=== PATIENT | male | born 1950 | race Caucasian/White ===

== ENCOUNTER 2019-03-19 15:23 | Inpatient (IN) | payer OTHER ==
[~2019-03-19] VITALS: Ht 190.5 cm; Wt 73.1 kg
[2019-03-19 15:26] VITALS: BP 198/102
[2019-03-19] MEDS ORDERED: NACL 0.9% 500 ML IV SCH (15:33)
[2019-03-19] MEDS ORDERED: DILTIAZEM 25 MG/5 ML VIAL IVP ONE (16:15)
[2019-03-19] MEDS ORDERED: ASPIRIN 325 MG TAB PO ONE (16:25)
[2019-03-19] MEDS ORDERED: CLINDAMYCIN 900 MG in DEXTROSE 5% 100 ML IV ONE (16:25)
[2019-03-19] MEDS ORDERED: CLINDAMYCIN 900 MG/6 ML VIAL IV ONE (16:30)
[2019-03-19 16:44] LABS: HEMOGLOBIN 15.8 g/dL (12.0-18.0); MEAN CORPUSCULAR HEMOGLOBIN 29 pg (27-31); MEAN CORPUSCULAR HGB CONC 32 g/dL (33-37); MEAN CORPUSCULAR VOLUME 90.3 fL (80-94); PLATELET COUNT (AUTO) 254 K/uL (140-450); RED BLOOD CELL COUNT(AUTO) 5.43 MIL/uL (4.20-6.10); RED CELL DISTRIBUTION WIDTH 17.7 % (11.6-13.7); WHITE BLOOD COUNT (AUTO) 18.8 K/uL (4.8-10.8)
[2019-03-19 16:55] LABS: ANION GAP 12.7 (8-16); CARBON DIOXIDE 30.2 mmol/L (21-32); CREATININE 0.9 mg/dL (0.7-1.3); POTASSIUM 3.9 mmol/L (3.5-5.1)
[2019-03-19 17:00] LABS: ALBUMIN 2.5 g/dL (3.4-5.0); TOTAL BILIRUBIN 0.5 mg/dL (0.0-1.0)
[2019-03-19 17:08] LABS: LYMPHOCYTES % (MANUAL) 5 % (20-46); MONOCYTES % (MANUAL) 5 % (5-12)
[2019-03-19] MEDS: NACL 0.9% 1,000 ML IV SCH (17:38)
[2019-03-19] MEDS ORDERED: HYDROcodone/APAP 7.5/325 MG 1 TAB PO PRN (17:40)
[2019-03-19] MEDS ORDERED: ONDANSETRON 4 MG/2 ML VIAL IM/IVP PRN (17:40)
[2019-03-19] MEDS ORDERED: ACETAMINOPHEN 325 MG TAB PO PRN (17:40)
[2019-03-19] MEDS ORDERED: DOCUSATE SODIUM 100 MG GELCAP PO PRN (17:40)
[2019-03-19] MEDS ORDERED: MORPHINE SULFATE 2 MG/ML SYR IVP PRN (17:40)
[2019-03-19] MEDS ORDERED: ALBUTEROL SULFATE/IPRATROPIU 3 ML SOL IH PRN (17:40)
[2019-03-19] MEDS ORDERED: METO25TA PO (18:02)
[2019-03-19] MEDS ORDERED: APIX5TAB PO (18:02)
[2019-03-19] MEDS ORDERED: HYDR2TAB6 PO (18:02)
[2019-03-19 18:10] LABS: PROTHROMBIN TIME 11.2 secs (10.8-13.4)
[2019-03-19 18:16] LABS: MAGNESIUM 1.5 mg/dL (1.8-2.4); THYROID STIMULATING HORMONE 0.42 uIU/mL (0.34-3.74)
[2019-03-19] MEDS: ALBUTEROL SULFATE/IPRATROPIU 3 ML SOL IH SCH (18:59)
[2019-03-19 20:00] VITALS: BP 117/65
[2019-03-20] VITALS (73 sets, daily range): BP systolic 85–156; BP diastolic 35–107
[2019-03-20] MEDS ORDERED: AZITHROMYCIN 250 MG TAB PO ONE (00:50)
[2019-03-20] MEDS: NACL 0.9% 1,000 ML IV SCH ×3 (01:03→23:38)
[2019-03-20] MEDS ORDERED: VANCOMYCIN PER PHARMACY MC PRN (01:35)
[2019-03-20] MEDS ORDERED: VANCOMYCIN 1GM/DEXT 5% PREMIX 200 ML IV SCH (02:00)
[2019-03-20] MEDS ORDERED: HYDROmorphone 2 MG TAB PO SCH (02:20)
[2019-03-20] MEDS ORDERED: VANCOMYCIN 1,000 MG VIAL ONE (02:41)
[2019-03-20] MEDS ORDERED: MAGNESIUM OXIDE 400 MG TAB PO SCH (03:00)
[2019-03-20] MEDS ORDERED: PIPERACILLIN/TAZOBACTAM 3.375 GM VIAL IV ONE (04:34)
[2019-03-20] MEDS: PIPERACILLIN/TAZOBACTAM 3.375 GM in DEXTROSE 5% 50 ML IV SCH ×3 (04:43→20:13)
[2019-03-20] MEDS ORDERED: CLINDAMYCIN 900 MG in DEXTROSE 5% 100 ML IV SCH (05:00)
[2019-03-20] MEDS ORDERED: PROPOFOL 1000 MG/100 ML PREMIX 100 ML IV SCH (06:05)
[2019-03-20] MEDS: ALBUTEROL SULFATE/IPRATROPIU 3 ML SOL IH SCH ×3 (06:46→19:32)
[2019-03-20] MEDS: BUDESONIDE 0.5 MG/2 ML NEBU INH SCH ×2 (06:47→19:32)
[2019-03-20] MEDS ORDERED: PROPOFOL 1000 MG/100 ML PREMIX 100 ML IV ONE (07:29)
[2019-03-20 08:30] LABS: CHOL/HDL RATIO 3.4 (1-4.5)
[2019-03-20] MEDS ORDERED: APIXABAN 2.5 MG TAB PO SCH (09:00)
[2019-03-20] MEDS ORDERED: METOPROLOL 25 MG TAB PO SCH (09:00)
[2019-03-20] MEDS ORDERED: NITROGLYCERIN 0.4 MG TAB SL PRN (09:40)
[2019-03-20] MEDS: LACTOBACILLUS RHAMNOSUS GG 1 EACH CAP PO SCH (09:52)
[2019-03-20] MEDS: APIXABAN 2.5 MG TAB PO SCH ×2 (09:53→20:14)
[2019-03-20] MEDS: MIDAZOLAM MDV 50 MG in NACL 0.9% 40 ML IV PRN (11:01)
[2019-03-20] MEDS ORDERED: MORPHINE SULFATE 50 MG in NACL 0.9% 45 ML IV PRN (13:00)
[2019-03-20] MEDS: VANCOMYCIN 1,000 MG in DEXTROSE 5% 250 ML IV SCH (14:46)
[2019-03-20] MEDS: ATORVASTATIN 20 MG TAB PO SCH (16:31)
[2019-03-20] MEDS: methylPREDNISolone SS 40 MG/ML VIAL IVP SCH (20:13)
[2019-03-20] MEDS: METOPROLOL 25 MG TAB PO SCH (20:14)
[2019-03-21] VITALS (103 sets, daily range): BP systolic 84–178; BP diastolic 36–101
[2019-03-21] MEDS: VANCOMYCIN 1,000 MG in DEXTROSE 5% 250 ML IV SCH (01:00)
[2019-03-21] MEDS: PIPERACILLIN/TAZOBACTAM 3.375 GM in DEXTROSE 5% 50 ML IV SCH ×3 (05:30→20:22)
[2019-03-21] MEDS: HYDROmorphone 1 MG/ML AMP IVP PRN (06:21)
[2019-03-21] MEDS: ALBUTEROL SULFATE/IPRATROPIU 3 ML SOL IH SCH ×3 (06:32→19:48)
[2019-03-21] MEDS: BUDESONIDE 0.5 MG/2 ML NEBU INH SCH ×2 (06:45→19:48)
[2019-03-21] MEDS: NACL 0.9% 1,000 ML IV SCH ×2 (07:30→18:14)
[2019-03-21] MEDS: METOPROLOL 25 MG TAB PO SCH ×2 (08:56→20:23)
[2019-03-21] MEDS: methylPREDNISolone SS 40 MG/ML VIAL IVP SCH ×2 (08:56→20:23)
[2019-03-21] MEDS: LACTOBACILLUS RHAMNOSUS GG 1 EACH CAP PO SCH (08:57)
[2019-03-21] MEDS ORDERED: ECOTRIN 81 MG TABEC PO SCH (09:00)
[2019-03-21] MEDS ORDERED: AZITHROMYCIN 250 MG TAB PO SCH (09:00)
[2019-03-21] MEDS: APIXABAN 2.5 MG TAB PO SCH ×2 (09:05→20:26)
[2019-03-21] MEDS: MIDAZOLAM MDV 50 MG in NACL 0.9% 40 ML IV PRN (09:39)
[2019-03-21 09:59] LABS: HEMATOCRIT 42.6 % (36-52); HEMOGLOBIN 13.6 g/dL (12.0-18.0); MEAN CORPUSCULAR HEMOGLOBIN 29 pg (27-31); MEAN CORPUSCULAR HGB CONC 32 g/dL (33-37); MEAN CORPUSCULAR VOLUME 90.6 fL (80-94); PLATELET COUNT (AUTO) 201 K/uL (140-450); RED CELL DISTRIBUTION WIDTH 17.5 % (11.6-13.7); WHITE BLOOD COUNT (AUTO) 9.8 K/uL (4.8-10.8)
[2019-03-21] MEDS: PANTOPRAZOLE 40 MG INJ VIAL IVP SCH (10:00)
[2019-03-21 10:39] LABS: ANION GAP 12.2 (8-16); CARBON DIOXIDE 26.2 mmol/L (21-32); CREATININE 1.5 mg/dL (0.7-1.3); POTASSIUM 4.4 mmol/L (3.5-5.1)
[2019-03-21 10:59] LABS: LYMPHOCYTES % (MANUAL) 6 % (20-46); MONOCYTES % (MANUAL) 3 % (5-12)
[2019-03-21 11:17] LABS: MAGNESIUM 1.8 mg/dL (1.8-2.4); PHOSPHORUS 4.3 mg/dL (2.5-4.9)
[2019-03-21] MEDS ORDERED: MIDAZOLAM IV PRN (15:54)
[2019-03-21] MEDS ORDERED: NACL 0.9% IV PRN (15:54)
[2019-03-21] MEDS ORDERED: MIDAZOLAM MDV 50 MG in NACL 0.9% 40 ML IV PRN (15:56)
[2019-03-21] MEDS: ATORVASTATIN 20 MG TAB PO SCH (18:13)
[2019-03-21] MEDS: CHLORHEXADINE GLUC 2% CLOTH TP SCH (21:15)
[2019-03-21] MEDS ORDERED: CHLORHEXADINE GLUC 2% CLOTH TP SCH (21:55)
[2019-03-22] VITALS (78 sets, daily range): BP systolic 79–181; BP diastolic 43–118
[2019-03-22] MEDS: NACL 0.9% 1,000 ML IV SCH ×2 (04:52→16:37)
[2019-03-22 04:53] LABS: BASOPHILS % (AUTO) 0.2 % (0.0-2.0); EOSINOPHILS % (AUTO) 0.1 % (0.0-4.0); HEMATOCRIT 45.4 % (36-52); HEMOGLOBIN 14.5 g/dL (12.0-18.0); LYMPHOCYTES # (AUTO) 0.5 K/uL (2.0-11.5); LYMPHOCYTES % (AUTO) 6.2 % (20.5-51.1); MEAN CORPUSCULAR HEMOGLOBIN 29 pg (27-31); MEAN CORPUSCULAR HGB CONC 32 g/dL (33-37); MEAN CORPUSCULAR VOLUME 90.2 fL (80-94); MONOCYTES # (AUTO) 0.3 K/uL (0.8-1.0); NEUTROPHILS # (AUTO) 7.2 K/uL (1.8-7.7); PLATELET COUNT (AUTO) 205 K/uL (140-450); RED BLOOD CELL COUNT(AUTO) 5.04 MIL/uL (4.20-6.10); RED CELL DISTRIBUTION WIDTH 17.6 % (11.6-13.7); WHITE BLOOD COUNT (AUTO) 8.1 K/uL (4.8-10.8)
[2019-03-22] MEDS: PIPERACILLIN/TAZOBACTAM 3.375 GM in DEXTROSE 5% 50 ML IV SCH ×3 (04:53→20:32)
[2019-03-22 05:24] LABS: NEUTROPHILS % (AUTO) 89.5 % (42.2-75.2)
[2019-03-22 05:41] LABS: ANION GAP 11.8 (8-16); CARBON DIOXIDE 26.6 mmol/L (21-32); CREATININE 1.4 mg/dL (0.7-1.3); POTASSIUM 4.4 mmol/L (3.5-5.1)
[2019-03-22 05:44] LABS: MAGNESIUM 1.8 mg/dL (1.8-2.4); PHOSPHORUS 4.2 mg/dL (2.5-4.9)
[2019-03-22] MEDS: ALBUTEROL SULFATE/IPRATROPIU 3 ML SOL IH SCH ×3 (06:16→19:21)
[2019-03-22] MEDS: BUDESONIDE 0.5 MG/2 ML NEBU INH SCH ×2 (06:25→19:29)
[2019-03-22] MEDS: methylPREDNISolone SS 40 MG/ML VIAL IVP SCH ×2 (08:41→20:32)
[2019-03-22] MEDS: PANTOPRAZOLE 40 MG INJ VIAL IVP SCH (08:41)
[2019-03-22] MEDS: MUPIROCIN 2% OINT 22 GM TUBE TP SCH (08:41)
[2019-03-22] MEDS: METOPROLOL 25 MG TAB PO SCH ×2 (08:42→20:35)
[2019-03-22] MEDS: LACTOBACILLUS RHAMNOSUS GG 1 EACH CAP PO SCH (08:43)
[2019-03-22] MEDS: APIXABAN 2.5 MG TAB PO SCH ×2 (08:43→20:35)
[2019-03-22] MEDS: ASPIRIN 81 MG TAB.CHEW PO SCH (08:46)
[2019-03-22] MEDS ORDERED: MUPIROCIN CA NASAL 2% 1GM TUBE NS SCH (09:00)
[2019-03-22] MEDS: VANCOMYCIN 1,000 MG in DEXTROSE 5% 250 ML IV SCH (09:26)
[2019-03-22] MEDS ORDERED: hydrALAZINE 20 MG/ML VIAL IVP PRN (13:55)
[2019-03-22] MEDS ORDERED: PROBIOTIC SCREEN 1 EA MISC MC PRN (14:20)
[2019-03-22] MEDS: ATORVASTATIN 20 MG TAB PO SCH (16:42)
[2019-03-22] MEDS: HYDROmorphone 1 MG/ML AMP IVP PRN (20:36)
[2019-03-22] MEDS: CHLORHEXADINE GLUC 2% CLOTH TP SCH (20:37)
[2019-03-23] VITALS (16 sets, daily range): BP systolic 118–175; BP diastolic 55–107
[2019-03-23] MEDS: NACL 0.9% 1,000 ML IV SCH ×2 (00:49→11:39)
[2019-03-23] MEDS: HYDROmorphone 1 MG/ML AMP IVP PRN ×3 (02:04→20:12)
[2019-03-23] MEDS: PIPERACILLIN/TAZOBACTAM 3.375 GM in DEXTROSE 5% 50 ML IV SCH ×3 (05:06→20:12)
[2019-03-23 05:48] LABS: ANION GAP 12.3 (8-16); CARBON DIOXIDE 25.9 mmol/L (21-32); CREATININE 1.3 mg/dL (0.7-1.3); POTASSIUM 4.2 mmol/L (3.5-5.1)
[2019-03-23 05:50] LABS: MAGNESIUM 1.9 mg/dL (1.8-2.4)
[2019-03-23 06:38] LABS: BASOPHILS % (AUTO) 0.1 % (0.0-2.0); HEMATOCRIT 44.8 % (36-52); HEMOGLOBIN 14.2 g/dL (12.0-18.0); LYMPHOCYTES # (AUTO) 0.3 K/uL (2.0-11.5); LYMPHOCYTES % (AUTO) 5.2 % (20.5-51.1); MEAN CORPUSCULAR HEMOGLOBIN 29 pg (27-31); MEAN CORPUSCULAR HGB CONC 32 g/dL (33-37); MEAN CORPUSCULAR VOLUME 90.6 fL (80-94); MONOCYTES # (AUTO) 0.3 K/uL (0.8-1.0); MONOCYTES % (AUTO) 4.3 % (1.7-9.3); NEUTROPHILS # (AUTO) 5.8 K/uL (1.8-7.7); NEUTROPHILS % (AUTO) 90.4 % (42.2-75.2); PLATELET COUNT (AUTO) 193 K/uL (140-450); RED BLOOD CELL COUNT(AUTO) 4.95 MIL/uL (4.20-6.10); RED CELL DISTRIBUTION WIDTH 17.9 % (11.6-13.7); WHITE BLOOD COUNT (AUTO) 6.4 K/uL (4.8-10.8)
[2019-03-23] MEDS: ALBUTEROL SULFATE/IPRATROPIU 3 ML SOL IH SCH ×3 (06:56→19:28)
[2019-03-23] MEDS: ACETYLCYSTEINE 10% (100 MG/ML) 100 MG/ML VIAL INH SCH ×3 (06:57→19:29)
[2019-03-23] MEDS: BUDESONIDE 0.5 MG/2 ML NEBU INH SCH ×2 (07:10→19:28)
[2019-03-23] MEDS: ASPIRIN 81 MG TAB.CHEW PO SCH (09:00)
[2019-03-23] MEDS: METOPROLOL 25 MG TAB PO SCH ×2 (09:06→20:11)
[2019-03-23] MEDS: VANCOMYCIN 1,000 MG in DEXTROSE 5% 250 ML IV SCH (09:06)
[2019-03-23] MEDS: PANTOPRAZOLE 40 MG INJ VIAL IVP SCH (09:06)
[2019-03-23] MEDS: methylPREDNISolone SS 40 MG/ML VIAL IVP SCH ×2 (09:06→20:12)
[2019-03-23] MEDS: LACTOBACILLUS RHAMNOSUS GG 1 EACH CAP PO SCH (09:07)
[2019-03-23] MEDS: APIXABAN 2.5 MG TAB PO SCH ×2 (09:12→21:42)
[2019-03-23] MEDS: MUPIROCIN 2% OINT 22 GM TUBE TP SCH (09:24)
[2019-03-23] MEDS ORDERED: FUROSEMIDE 40 MG/4 ML VIAL IVP SCH ×2 (11:24→11:35)
[2019-03-23] MEDS: ATORVASTATIN 20 MG TAB PO SCH (16:40)
[2019-03-23] MEDS: FUROSEMIDE 40 MG/4 ML VIAL IVP SCH (16:40)
[2019-03-23 17:24] LABS: APPEARANCE,URINE CLEAR (CLEAR); BILIRUBIN,URINE NEGATIVE (NEGATIVE); BLOOD, URINE 1+ (NEGATIVE); COLOR,URINE YELLOW (YELLOW); LEUKOCYTE ESTERASE ,URINE NEGATIVE (NEGATIVE); NITRITE, URINE NEGATIVE (NEGATIVE); UGLUCOSE NEGATIVE (NEGATIVE)
[2019-03-23 17:35] LABS: RBC,URINE 0-5 /HPF (0-5); WBC,URINE NONE SEEN /HPF (0-5)
[2019-03-23] MEDS: CHLORHEXADINE GLUC 2% CLOTH TP SCH (20:13)
[2019-03-24 02:00] VITALS: BP 103/50
[2019-03-24] MEDS: HYDROmorphone 1 MG/ML AMP IVP PRN (02:19)
[2019-03-24] MEDS: PIPERACILLIN/TAZOBACTAM 3.375 GM in DEXTROSE 5% 50 ML IV SCH (05:00)
[2019-03-24] MEDS: ACETYLCYSTEINE 10% (100 MG/ML) 100 MG/ML VIAL INH SCH ×2 (07:20→14:01)
[2019-03-24] MEDS: BUDESONIDE 0.5 MG/2 ML NEBU INH SCH (07:20)
[2019-03-24] MEDS: ALBUTEROL SULFATE/IPRATROPIU 3 ML SOL IH SCH ×2 (07:20→14:00)
[2019-03-24 08:00] VITALS: BP 155/82
[2019-03-24] MEDS: PANTOPRAZOLE 40 MG INJ VIAL IVP SCH (08:45)
[2019-03-24] MEDS: methylPREDNISolone SS 40 MG/ML VIAL IVP SCH (08:45)
[2019-03-24] MEDS: FUROSEMIDE 40 MG/4 ML VIAL IVP SCH (08:45)
[2019-03-24] MEDS: LACTOBACILLUS RHAMNOSUS GG 1 EACH CAP PO SCH (08:45)
[2019-03-24] MEDS: METOPROLOL 25 MG TAB PO SCH (08:46)
[2019-03-24] MEDS: ASPIRIN 81 MG TAB.CHEW PO SCH (08:47)
[2019-03-24] MEDS: APIXABAN 2.5 MG TAB PO SCH (08:51)
[2019-03-24] MEDS: MUPIROCIN 2% OINT 22 GM TUBE TP SCH (09:00)
[2019-03-24 09:43] LABS: HEMATOCRIT 42.6 % (36-52); HEMOGLOBIN 13.6 g/dL (12.0-18.0); LYMPHOCYTES # (AUTO) 0.2 K/uL (2.0-11.5); MEAN CORPUSCULAR HEMOGLOBIN 29 pg (27-31); MEAN CORPUSCULAR HGB CONC 32 g/dL (33-37); MEAN CORPUSCULAR VOLUME 89.8 fL (80-94); MONOCYTES # (AUTO) 0.5 K/uL (0.8-1.0); MONOCYTES % (AUTO) 7.4 % (1.7-9.3); NEUTROPHILS # (AUTO) 5.7 K/uL (1.8-7.7); NEUTROPHILS % (AUTO) 89.6 % (42.2-75.2); PLATELET COUNT (AUTO) 182 K/uL (140-450); RED BLOOD CELL COUNT(AUTO) 4.74 MIL/uL (4.20-6.10); RED CELL DISTRIBUTION WIDTH 17.3 % (11.6-13.7); WHITE BLOOD COUNT (AUTO) 6.3 K/uL (4.8-10.8)
[2019-03-24 09:49] LABS: ANION GAP 12.8 (8-16); CARBON DIOXIDE 31.5 mmol/L (21-32); CREATININE 1.5 mg/dL (0.7-1.3); POTASSIUM 3.3 mmol/L (3.5-5.1)
[2019-03-24 09:58] LABS: MAGNESIUM 1.7 mg/dL (1.8-2.4); PHOSPHORUS 4.2 mg/dL (2.5-4.9)
[2019-03-24] MEDS ORDERED: MUC104 INH (11:28)
[2019-03-24] MEDS ORDERED: PIPE1SOL IV (11:28)
[2019-03-24] MEDS ORDERED: ATOR20TA40 PO (11:28)
[2019-03-24] MEDS ORDERED: Vancomycin Per Pharmacy MC (11:28)
[2019-03-24] MEDS ORDERED: LACT10CA PO (11:28)
[2019-03-24] MEDS ORDERED: ASPI81CT95 PO (11:28)
[2019-03-24] MEDS ORDERED: METO25TA PO (11:28)
== END 2019-03-24 15:05 | DRG 871 ==
LOC: MED 15:23 → MMU 17:42 → MIC 03-20 05:50 → MTU 03-24 06:50
PROVIDERS: ADMIT General Practice; ATTEND General Practice
PROC: 0BH17EZ Insertion of Endotracheal Airway into Trachea, Via Natural or Artificial Opening (ICD-10-PCS; principal; 2019-03-20)
PROC: 5A1945Z Respiratory Ventilation, 24-96 Consecutive Hours (ICD-10-PCS; 2019-03-20)
DX: A41.9 Sepsis, unspecified organism (principal); J69.0 Pneumonitis due to inhalation of food and vomit; J96.01 Acute respiratory failure with hypoxia; I21.A1 Myocardial infarction type 2; N17.0 Acute kidney failure with tubular necrosis; E44.0 Moderate protein-calorie malnutrition; J44.1 Chronic obstructive pulmonary disease with (acute) exacerbation; I25.10 Atherosclerotic heart disease of native coronary artery without angina pectoris; I10 Essential (primary) hypertension; I73.9 Peripheral vascular disease, unspecified; E83.42 Hypomagnesemia; I35.0 Nonrheumatic aortic (valve) stenosis; I48.91 Unspecified atrial fibrillation; Z59.0 Homelessness; Z79.899 Other long term (current) drug therapy; Z89.511 Acquired absence of right leg below knee; Z89.612 Acquired absence of left leg above knee; Z79.01 Long term (current) use of anticoagulants; Z90.49 Acquired absence of other specified parts of digestive tract; Z85.830 Personal history of malignant neoplasm of bone; Z68.20 Body mass index [BMI] 20.0-20.9, adult
CPT/HCPCS: 36415; 36600; 71045; 80048; 80053; 80202; 81001; 82803; 83036; 83605; 83735; 83880; 84100; 84443; 84484; 85025; 85610; 85730; 87040; 87070; 87081; 87205; 87804; 89220; 93005; 94002; 94003; 94640; 96365; 96375; 99285; C9113; J0360; J1170; J1644; J1940; J2250; J2270; J2543; J2704; J2920; J3370; J3490; J7030; J7060; J7620; J7626; Q0092